=== PATIENT | female | born 1945 | race Caucasian/White ===

== ENCOUNTER 2020-07-25 06:00 | Day surgery (SDC) | payer MEDICARE, OTHER, SELFPAY ==
[2020-07-16 18:27] VITALS: BMI 33.5
[2020-07-16 18:33] VITALS: BMI 33.5
--- NOTE | 2020-07-23 17:55 | HP_ITS ---
DATE OF SERVICE: 07/25/2020 DATE OF PROPOSED SURGERY: July 25, 2020. PREOPERATIVE DIAGNOSIS: 1. Hammertoe, left second toe. 2. Flexible hammertoes, left third toe. 3. Flexible hammertoes, left fourth toe. 4. Flexible hammertoes, left fifth toe. PLANNED PROCEDURE: 1. Hammertoe repair, left second toe, with K-wire fixation and use of mini C-arm fluoroscopy visualization. 2. Flexor tenotomy of the left third toe. 3. Flexor tenotomy of the left fourth toe. 4. Flexor tenotomy of the left fifth toe. PLANNED ANESTHESIA: MAC anesthesia. CHIEF COMPLAINT AND HISTORY OF PRESENT ILLNESS: Anna Coates is a 74-year-old female who relates history of painful hammertoe deformities, bilateral feet second through fifth toes, the left is more advanced than the right. She relates her condition has progressively worsened over the past year and is aggravated by shoe gear and walking activity. Conservative treatment consisting of use of her diabetic extra-depth shoe gear has proven ineffective in resolving her condition and the patient is now requesting surgical treatment. PAST MEDICAL HISTORY: Remarkable for nonalcoholic fatty liver disease, polyps of her gallbladder, hypertension, osteopenia, high cholesterol, anxiety, sleep apnea, depression, type 2 diabetes, hypothyroidism, esophageal reflux. CURRENT MEDICATIONS: The patient takes venlafaxine, amlodipine, glimepiride, irbesartan, levothyroxine, metformin, omeprazole, nystatin, meclizine, and then nutritional supplements. ALLERGIES: PATIENT RELATES NEGATIVE REACTION TO LATEX AND MORPHINE WELL NEGATIVE REACTION TO TAPE, LIPITOR, LISINOPRIL, AND ZETIA. FAMILY HISTORY: Significant for heart disease, hypertension, diabetes, liver disease, arthritis. SOCIAL HISTORY: The patient denies smoking, denies use of any recreational drugs. The patient does drink 1 to 2 cups of coffee per day and does relate occasional alcohol consumption. The patient is retired, and has children. PODIATRIC PHYSICAL EXAM: VASCULAR EXAM: The patient displays +1/4 pulse. The DP and PT arteries in bilateral feet with normal capillary refill time noted in bilateral feet. NEUROLOGIC EXAM: Reveals reduced vibratory sensation in bilateral forefeet. The patient does have pain on palpation, dorsum left first MTP joint and plantar left second metatarsophalangeal joint. DERMATOLOGIC EXAM: Reveals intact skin. The patient does display keratosis, bilateral feet. ORTHOPEDIC EXAM: Reveals bunion deformity, bilateral feet; hammertoe deformity, 2 through 5 bilateral feet. The patient was seen most recently in my office on July 02, 2020. At that point, we discussed all potential risks and complications associated with hammertoe surgery of her left foot. The patient is compliant with surgical treatment. Written consent form will be obtained from the patient on the morning of surgery. KWABENA Morillo/GISSELLE / [id number]
--- NOTE | 2020-07-24 10:42 | P.CONAN_ITS ---
Documented by User: Piedad Patel 07/24/20 10:44 HPI - Anesthesia Eval Consult details Narrative: 74yo F for Left Hammertoe Repair,2nd, 3rd, 4th & 5th Flexor Tenotomy PCP cleared [facility], [facility] Past Medical History Medical History Back pain Depression Diabetes GERD (gastroesophageal reflux disease) History of GI bleed Hyperlipidemia Hypertension Hypothyroid Peripheral neuropathy Status post open reduction and internal fixation (ORIF) of fracture Surgical History Surgical History H/O: section History of appendectomy History of lumbar discectomy Social History Social History Second Hand Smoke Exposure: No Use of substances other than those prescribed or required for medical reasons: No Are you DNR?: No Advance Directives: No Advance Directives Information Provided: No Advance Directives on File: No Recently lost weight without trying: No Nutrition Risks: No Nutritional Risk Patient : No Meds Allergies Allergy/AdvReac Type Severity Reaction Status Date / Time adhesive tape Allergy Rash Verified 07/16/20 18:25 celecoxib Allergy Unknown Verified 07/24/20 09:43 morphine Allergy Unknown Verified 07/24/20 09:42 Home Medications Medication Instructions Recorded Confirmed Last Taken Type Tumeric 1 tab PO DAILY 07/16/20 07/16/20 Unknown History amlodipine 5 mg PO DAILY 07/16/20 07/16/20 Unknown History ascorbic acid (vitamin C) [Vitamin 250 mg PO DAILY 07/16/20 07/16/20 Unknown History C] berberine-herbal comb no.18 1 cap PO DAILY 07/16/20 07/16/20 Unknown History cholecalciferol (vitamin D3) 125 mcg PO DAILY 07/16/20 07/16/20 Unknown History [Vitamin D3] coenzyme Q10 [CoQ-10] 100 mg PO DAILY 07/16/20 07/16/20 Unknown History cranberry extract 250 mg PO 07/16/20 Unknown History glimepiride 1 tab PO DAILY 07/16/20 07/16/20 Unknown History glutathione 50 mg PO DAILY 07/16/20 07/16/20 Unknown History irbesartan 150 mg PO DAILY 07/16/20 07/16/20 07/25/20 05:00 History levothyroxine 125 mcg PO DAILY 07/16/20 07/16/20 07/25/20 05:00 History meclizine 1 tab PO BID PRN 07/16/20 07/16/20 Unknown History metformin 1,000 mg PO BID 07/16/20 07/16/20 Unknown History omeprazole 20 mg PO DAILY 07/16/20 07/16/20 07/25/20 05:00 History venlafaxine 150 mg PO DAILY 07/16/20 07/16/20 Unknown History vitamin K2 100 mcg PO DAILY 07/16/20 07/16/20 Unknown History Exam Exam Date and Time: July 24, 2020 1042 Height,Weight and Vital Signs: Height 5 ft 3 in Weight 85.729 kg Assessment and Plan Assessment Anesthesia Assessment: Chart Reviewed Documented by User: Tena Zarco 07/25/20 07:48 [facility] Past Medical History Medical History Back pain Depression Diabetes GERD (gastroesophageal reflux disease) History of GI bleed Hyperlipidemia Hypertension Hypothyroid Peripheral neuropathy Status post open reduction and internal fixation (ORIF) of fracture Family History Family history of problems with anesthesia: No Surgical History Surgical History H/O: section History of appendectomy History of lumbar discectomy History of Problems with Anesthesia: No Social History Social History Second Hand Smoke Exposure: No Use of substances other than those prescribed or required for medical reasons: No Are you DNR?: No Advance Directives: No Advance Directives Information Provided: No Advance Directives on File: No Recently lost weight without trying: No Nutrition Risks: No Nutritional Risk Patient : No Meds Allergies Allergy/AdvReac Type Severity Reaction Status Date / Time adhesive tape Allergy Rash Verified 07/16/20 18:25 celecoxib Allergy Unknown Verified 07/24/20 09:43 morphine Allergy Unknown Verified 07/24/20 09:42 Home Medications Medication Instructions Recorded Confirmed Last Taken Type Tumeric 1 tab PO DAILY 07/16/20 07/16/20 Unknown History amlodipine 5 mg PO DAILY 07/16/20 07/16/20 Unknown History ascorbic acid (vitamin C) [Vitamin 250 mg PO DAILY 07/16/20 07/16/20 Unknown History C] berberine-herbal comb no.18 1 cap PO DAILY 07/16/20 07/16/20 Unknown History cholecalciferol (vitamin D3) 125 mcg PO DAILY 07/16/20 07/16/20 Unknown History [Vitamin D3] coenzyme Q10 [CoQ-10] 100 mg PO DAILY 07/16/20 07/16/20 Unknown History cranberry extract 250 mg PO 07/16/20 Unknown History glimepiride 1 tab PO DAILY 07/16/20 07/16/20 Unknown History glutathione 50 mg PO DAILY 07/16/20 07/16/20 Unknown History irbesartan 150 mg PO DAILY 07/16/20 07/16/20 07/25/20 05:00 History levothyroxine 125 mcg PO DAILY 07/16/20 07/16/20 07/25/20 05:00 History meclizine 1 tab PO BID PRN 07/16/20 07/16/20 Unknown History metformin 1,000 mg PO BID 07/16/20 07/16/20 Unknown History omeprazole 20 mg PO DAILY 07/16/20 07/16/20 07/25/20 05:00 History venlafaxine 150 mg PO DAILY 07/16/20 07/16/20 Unknown History vitamin K2 100 mcg PO DAILY 07/16/20 07/16/20 Unknown History Documented by User: Barry Smith 07/25/20 07:56 [facility] Past Medical History Medical History Back pain Depression Diabetes GERD (gastroesophageal reflux disease) History of GI bleed Hyperlipidemia Hypertension Hypothyroid Peripheral neuropathy Status post open reduction and internal fixation (ORIF) of fracture Surgical History Surgical History H/O: section History of appendectomy History of lumbar discectomy Social History Social History Second Hand Smoke Exposure: No Use of substances other than those prescribed or required for medical reasons: No Are you DNR?: No Advance Directives: No Advance Directives Information Provided: No Advance Directives on File: No Recently lost weight without trying: No Nutrition Risks: No Nutritional Risk Patient : No Meds Allergies Allergy/AdvReac Type Severity Reaction Status Date / Time adhesive tape Allergy Rash Verified 07/16/20 18:25 celecoxib Allergy Unknown Verified 07/24/20 09:43 morphine Allergy Unknown Verified 07/24/20 09:42 Home Medications Medication Instructions Recorded Confirmed Last Taken Type Tumeric 1 tab PO DAILY 07/16/20 07/16/20 Unknown History amlodipine 5 mg PO DAILY 07/16/20 07/16/20 Unknown History ascorbic acid (vitamin C) [Vitamin 250 mg PO DAILY 07/16/20 07/16/20 Unknown History C] berberine-herbal comb no.18 1 cap PO DAILY 07/16/20 07/16/20 Unknown History cholecalciferol (vitamin D3) 125 mcg PO DAILY 07/16/20 07/16/20 Unknown History [Vitamin D3] coenzyme Q10 [CoQ-10] 100 mg PO DAILY 07/16/20 07/16/20 Unknown History cranberry extract 250 mg PO 07/16/20 Unknown History glimepiride 1 tab PO DAILY 07/16/20 07/16/20 Unknown History glutathione 50 mg PO DAILY 07/16/20 07/16/20 Unknown History irbesartan 150 mg PO DAILY 07/16/20 07/16/20 07/25/20 05:00 History levothyroxine 125 mcg PO DAILY 07/16/20 07/16/20 07/25/20 05:00 History meclizine 1 tab PO BID PRN 07/16/20 07/16/20 Unknown History metformin 1,000 mg PO BID 07/16/20 07/16/20 Unknown History omeprazole 20 mg PO DAILY 07/16/20 07/16/20 07/25/20 05:00 History venlafaxine 150 mg PO DAILY 07/16/20 07/16/20 Unknown History vitamin K2 100 mcg PO DAILY 07/16/20 07/16/20 Unknown History Exam Airway Mallampati Class: II TM Dist: >3cm Neck ROM: Full Loose/Missing/Broken Teeth: Yes Heart: [id number] Lungs: cta b/l Assessment and Plan Assessment Anesthesia Assessment: Anesthesia Plan Discussed, PAT Visit and Chart Reviewed Final Anesthetic Review NPO: Yes ASA Class: III Final Preanesthetic Review: No Changes in Pt Med Stat, Meds/Allgs Chart Reviewed, Consent Obtained/Reviewed and Anes Risks/Benef Reviewed Patient Risk: Intermediate Procedure Risk: Low Assessment/Block/Sedation in SS: Assess/Block/Sedation-SS Anesthetic Plan Anesthetic Plan: MAC: and Agree w/ Assess. and Plan Disposition: Standard PACU
--- NOTE | ~2020-07-25 | FL_ITS ---
EXAMINATION: XR FLUOROSCOPY WITH IMAGES CLINICAL INFORMATION: Hammer toe left 2nd, 3rd,4th, 5th flexor tenotomy COMPARISON: None. TECHNIQUE: Fluoroscopy performed by Ishan Ospina DPM. Fluoroscopy time: 4 seconds DAP: 3.6 mGycm2 Images: 1 FINDINGS: There is a metallic pin along long axis second digit with tip at base proximal phalanx. There is also hardware, pins and wire, involving the fifth metatarsal. There are degenerative changes first MTP joint. FL/FL guidance in OR IMPRESSION: Fluoroscopy for podiatric surgery.
[2020-07-25 06:11] VITALS: BP 136/74; PULSE 70; RESP 16; TEMP 36.7; O2SAT 96
[2020-07-25 06:37] LABS: Glucose, Whole Blood 170 mg/dL (60-115)
[2020-07-25] MEDS: Lactated Ringers 1,000 ML 100 ML IVCONT (06:40)
[2020-07-25 08:17] VITALS: BP 123/62; PULSE 66; RESP 14; TEMP 36.4; O2SAT 94
--- NOTE | 2020-07-25 08:20 | MHC.SHP ---
Pre-Procedural Eval Section B Chief Complaint: hammer toes Allergies: Allergies Allergy/AdvReac Type Severity Reaction Status Date / Time adhesive tape Allergy Rash Verified 07/16/20 18:25 celecoxib Allergy Unknown Verified 07/24/20 09:43 morphine Allergy Unknown Verified 07/24/20 09:42 Plan I have reviewed the history and physical and performed a pertinent physical examination on my patient. No changes have occurred unless specified.
--- NOTE | 2020-07-25 08:24 | PCN2_ITS ---
Brief Operative Note Date of procedure: 07/25/20 Pre-op diagnosis: hammertoe left 2,3,4 and 5th toes Post-op diagnosis: same Procedure: hammertoe repair left 2nd toe with k-wire fixation; flexor tenotomy with capsulotomy left 3,4 and 5th toes Anesthesia: MAC Surgeon: Ishan Ospina Telephone Answering Service Operator: Norma El Estimated blood loss (mL): 1.0 Condition: stable Disposition: PACU
[2020-07-25 08:33] VITALS: BP 135/52; PULSE 67; RESP 17; TEMP 36.4; O2SAT 98
--- NOTE | 2020-07-25 10:08 | OP_ITS ---
SURGEON: Ishan Ospina DPM PREOPERATIVE DIAGNOSIS: POSTOPERATIVE DIAGNOSIS: PROCEDURE PERFORMED: ESTIMATED BLOOD LOSS: COMPLICATIONS: ANESTHESIA: Consisted of local administration of a total of 9 mL of an equal mix of 2% lidocaine with epinephrine 1:100,000 and 0.5% Marcaine plain. Intravenous sedation was provided by the Anesthesia Department. ASSISTANTS: Dr. El. SPECIMENS: PREOPERATIVE DIAGNOSES: 1. Hammertoe, left second toe. 2. Flexible hammertoes, left third toe. 3. Flexible hammertoes, left fourth toe. 4. Flexible hammertoes, left fifth toe. POSTOPERATIVE DIAGNOSES: 1. Hammertoe, left second toe. 2. Flexible hammertoes, left third toe. 3. Flexible hammertoes, left fourth toe. 4. Flexible hammertoes, left fifth toe. PROCEDURES PERFORMED: 1. Hammertoe repair, left second toe with K-wire fixation under mini C-arm fluoroscopy. 2. Flexor tenotomy of the left third toe. 3. Flexor tenotomy of the left fourth toe. 4. Flexor tenotomy of the left fifth toe. INTRODUCTION: The patient was brought to the operating room, placed on the operating table in the supine position. After having been suitably anesthetized with local infiltrative anesthesia, the left lower extremity was then prepped and draped in the usual sterile manner. Please note that prior to the start of the procedures, the left foot was exsanguinated utilizing an Esmarch bandage and left ankle tourniquet was inflated to 220 mmHg pressure for the duration of the procedures. HAMMERTOE REPAIR OF LEFT SECOND TOE WITH K-WIRE FIXATION. Attention was directed to the dorsum of the left second toe, where an incision approximately 3 cm length was effected and centered over the dorsum of the left second toe proximal interphalangeal joint. The incision was deepened in the same plane and hemostasis was acquired as necessary. The skin margins were underscored and retracted. A transverse incision was effected through the extensor tendon complex at the level of the PIP joint and the extensor tendon was underscored both proximally and distally. The hypertrophic head of the proximal phalanx and hypertrophic base of the middle phalanx were resected utilizing sagittal saw. The wound was irrigated with copious amounts of sterile saline. Utilizing a 0.054 inch K-wire, the care was driven distally through the middle and distal phalanges of the midline and then driven from distal to proximal into the proximal phalanx utilizing the mini C-arm fluoroscopy to assure appropriate placement. Once the more proximal tip of the K-wire was in the base of the proximal phalanx, there was no more need for the C-arm visualization. Excess K-wire was bent, cut, and capped. Redundant extensor tendon was resected utilizing tenotomy scissors and then caught to maintain utilizing 3-0 Vicryl. Skin margins were closed with 4-0 nylon. FLEXOR TENOTOMIES OF THE LEFT THIRD, FOURTH, AND FIFTH TOES. Attention was directed to the plantar aspect of the left 3rd, 4th and fifth toe, where incision was made utilizing a #18-gauge needle and utilizing transverse the flexor tendon and capsule released utilizing the 18-gauge, tip of a trocar point. This was found to give very good reduction of the left fourth toe, but then a #11 blade was utilized to make a longer incision on the left third and fifth toes, and given more extensor release of the tendon and capsule on the plantar aspect of these respective digits. Once this was achieved, the digits were all in rectus alignment. The skin margins were closed with 4-0 nylon. CONCLUSION: At the inclusion of these procedures, the operative sites were dressed with Xeroform, Betadine-soaked gauze, surgical sites were injected with a total of 4 mL of Marcaine 0.5% plain. Sterile dressings were further applied and left ankle tourniquet was deflated. Normal blood flow was reestablished to the left lower extremity after 23 minutes of tourniquet inflation. The patient left the room via cart to Recovery with vital signs stable. FINAL DISPOSITION: The patient is discharged to home with instructions for self-care and include the followin. To keep the dressings dry, clean, and intact. 2. To keep the left leg elevated with ice above the ankle. 3. Take all medications as prescribed. 4. To limit activity to minimum. 5. To always use surgical shoe when ambulating. 6. The patient has prescription for gabapentin 100 mg total, #10 one p.o. at bedtime p.r.n. pain and the patient is instructed otherwise to take Tylenol as needed for pain control. KWABENA Morillo/GISSELLE / [id number]
== END 2020-07-25 09:31 | disposition home or self-care (01) ==
PROVIDERS: PCP Internal Medicine; Visit Provider Podiatrist
PROC: (CPT 28285; principal; 2020-07-25 07:30)
DX: M20.42 Other hammer toe(s) (acquired), left foot (principal); I10 Essential (primary) hypertension; G62.9 Polyneuropathy, unspecified; E11.9 Type 2 diabetes mellitus without complications; Z79.84 Long term (current) use of oral hypoglycemic drugs; Z79.899 Other long term (current) drug therapy
CPT/HCPCS: 28285 ×4; 82947; 88304; 88311; J0690; J1100; J2250